=== PATIENT | female | born 1990 | race Caucasian/White ===

== ENCOUNTER 2017-10-28 23:11 | Emergency (ER) | END 2017-10-29 01:11 | disposition home or self-care (01) ==

== ENCOUNTER 2017-11-01 16:01 | Emergency (ER) | END 2017-11-01 16:48 | disposition home or self-care (01) ==

== ENCOUNTER 2018-05-08 19:37 | Emergency (ER) | payer OTHER ==
[~2018-05-08] VITALS: Ht 162.6 cm; Wt 97.0 kg
[~2018-05-08 19:37] MED LIST: CETI1TAB6 PO; GUAI-637 PO; IBUP-1561 PO; PHEN177S43 MT
[2018-05-08 19:40] VITALS: BP 131/74; PULSE 70; RESP 18; Ht 162.6 cm; Wt 97.0 kg
[2018-05-08] MEDS ORDERED: POLY10DR BOTH EYES (21:06)
--- NOTE | 2018-05-09 07:25 | ERD ---
ER Documentation Chief Complaint Chief Complaint BILATERAL EYE DISCHARGE IN THE MORNINGS X2 DAYS HPI 28-year-old female presents with bilateral eye discharge and redness times 2 days. States that she tried [id number] eyedrops without relief. She states that there was some crusting in the morning. States that there was associated itchiness in both eyes. Denies fevers or chills. ROS All systems reviewed and are negative except as per history of present illness. Medications Home Meds Active Scripts Polymyxin/Trimethoprim* (Polytrim* Eye Drops) 10 Ml Drops, 1 DROP BOTH EYES Q3H for conjunctivitis for 5 Days, #1 EA Prov:VALERIA WITT 05/08/18 Guaifenesin* (Robitussin*) 100 Mg/5 Ml Syrup, 100 MG PO Q6H PRN for COUGH, #60 ML Prov:INESSA RICH PA-C 11/01/17 Ibuprofen* (Motrin*) 400 Mg Tab, 400 MG PO Q6H PRN for PAIN AND OR ELEVATED T EMP, #30 TAB Prov:INESSA RICH PA-C 11/01/17 Cetirizine/Pseudoephedrine (Zyrtec-D) 5-120 Mg Tab.er.12h, 1 TAB PO Q12, #14 TAB Prov:INESSA RICH PA-C 11/01/17 Phenol* (Chloraseptic* Brewster) 177 Ml Brewster.pump, 2 SPRAY MT Q2H PRN for SORE THROAT, #1 BOTTLE Prov:MARLEE CABEZAS PA-C 10/29/17 Allergies Allergies: Coded Allergies: No Known Allergy (Unverified , 05/08/18) PMhx/Soc Medical and Surgical Hx: pt denies Medical Hx, pt denies Surgical Hx Hx Alcohol Use: No Hx Substance Use: No Hx Tobacco Use: No Smoking Status: Never smoker Physical Exam Vitals Vital Signs Date Temp Pulse Resp B/P (MAP) Pulse Ox O2 O2 Flow FiO2 Time Delivery Rate 05/08/18 97.9 70 18 131/74 98 19:40 (93) Physical Exam Const: No acute distress Head: Atraumatic Eyes: Bilateral injections noted ENT: Normal External Ears, Nose and Mouth. Neck: Full range of motion. No meningismus. Resp: Clear to auscultation bilaterally Cardio: Regular rate and rhythm, no murmurs Skin: No petechiae or rashes Ext: No cyanosis, or edema Neur: Awake and alert Psych: Normal Mood and Affect Procedures/MDM Medical Decision Making: Differential diagnosis includes but not limited to bacterial conjunctivitis, viral conjunctivitis, glaucoma, uveitis Patient appeared well on physical exam. History and examination consistent with a bacterial conjunctivitis Patient given prescription for antibiotic eyedrops. Advised that she may need to follow with ophthalmology if symptoms do not improve. Patient advised to follow up with PCP in 1-2 days. Patient advised to return to ED for new or worsening symptoms. Patient stable on discharge from the ED. Disclaimer: Inadvertent spelling and grammatical errors are likely due to EHR/dictation software use and do not reflect on the overall quality of patient care. Also, please note that the electronic time recorded on this note does not necessarily reflect the actual time of the patient encounter. Departure Diagnosis: Primary Impression: Conjunctivitis Condition: Fair Patient Instructions: Conjunctivitis Caused by Infection Additional Instructions: Call your primary care doctor TOMORROW for an appointment during the next 1-2 days.See the doctor sooner or return here if your condition worsens before your appointment time. VALERIA WITT DO May 09, 2018 07:25
== END 2018-05-08 21:30 | disposition home or self-care (01) ==
LOC: FTE 19:37
DX: H10.9 Unspecified conjunctivitis (principal)
CPT/HCPCS: 99283